=== PATIENT | male | born 1990 | race Caucasian/White ===

== ENCOUNTER → 2017-02-15 22:50 | Emergency (ER) | payer OTHER ==
--- NOTE | ~2017-02-15 | EKG ---
PATIENT: ABRAHAM MCNAMARA UNIT #: [id number] Ventricular Rate: 106 BPM Atrial Rate: 106 BPM P-R Interval: 154 ms QRS Duration: 88 ms Q-T Interval: 334 ms QTC Calculation(Bezet): 443 ms P Union: 18 degrees Calculated R Union: 33 degrees Calculated T Union: 24 degrees Diagnosis Line: Sinus tachycardia Diagnosis Line: Otherwise normal ECG Diagnosis Line: When compared with ECG of 09-MAY-2016 16:39, Diagnosis Line: No significant change was found Diagnosis Line: Confirmed by SERAFIN LINDSEY MD ([id number]) on 02/18/2017 Diagnosis Line: 7:26:01 AM INTERPRETING MD: ROSALIA LUGO
--- NOTE | ~2017-02-15 | CR72 ---
[facility] A Service of [facility] RADIOLOGY TEXT RESULTS PATIENT: ABRAHAM MCNAMARA JR LOCATION: [facility] : [birth year] UNIT #: [id number] AGE: [address]: BIA ER DOCTOR SEX: M ORDER DR: [id number] [place], [place] [address] [id number] E MR#: [id number] Acc #: [id number] NAME: ABRAHAM MCNAMARA JR : 1990 SEX: M STUDY DATE/TIME: 02/15/2017 21:43 UNIT: ASHLEY ROOM: STUDY DESCRIPTION: CR Chest Single View Portable Attending Physician: Ed Doc Paloma Loera Ordering Physician: Ramiro Mcdaniels M.D. Primary Care Physician: Ramandeep Meyer A.P.R.N. MEDICAL IMAGING REPORT This report is preliminary unless electronic signature is present EXAM Portable chest. DATE OF EXAM 02/15/2017 INDICATIONS Mid chest pain today. PROCEDURE Frontal view chest. COMPARISON 05/09/2016 FINDINGS Heart size is normal. Lungs are clear. No pleural fluid. No pneumothorax. IMPRESSION No active process. Dictated by... Baldo Saunders M.D. THIS IS AN ELECTRONICALLY VERIFIED REPORT Baldo Saunders M.D. at 02/18/2017 7:23 AM ALBINA/ashley TD: 02/16/2017 20:51 JOB #: [id number] [facility] A Service of [facility] RADIOLOGY TEXT RESULTS PATIENT: ABRAHAM MCNAMARA JR LOCATION: [facility] : [birth year] UNIT #: [id number] AGE: [address]: RODRIGUEZ LOERA DOCTOR SEX: M ORDER DR: MEDICAL IMAGING REPORT COPY
[2017-02-15 22:50] LABS: BASOPHIL% 0.3 % (0-2.5); DIFF IND NO; EOSINOPHIL# 0.1 X10e3 (0-0.7); EOSINOPHIL% 0.8 % (0.0-7.0); HEMOGLOBIN 15.9 gm/dL (13.0-16.0); LYMPHOCYTE% 16.2 % (17.0-45.0); MEAN CELL VOLUME 84.1 FL (83-96); MEAN CORPUSCULAR HEMOGLOBIN 27.9 PG (28-34); MEAN CORPUSCULAR HGB CONC 33.2 g/dL (30-36); MEAN PLATELET VOLUME 10.7 FL (6.5-11.5); MONOCYTE% 7.7 % (3.0-12.0); NEUTROPHIL# 9.3 X10e3 (1.5-7.1); PLATELET COUNT 222 X10e3 (140-420); RED BLOOD COUNT 5.71 X10e (3.90-5.60); WHITE BLOOD COUNT 12.4 X10e3 (4.0-10.5)
[~2017-02-15 22:50] MED LIST: ALBUTEROL17 GM INH; ASMANEX0.24 G3 IH; AUGMENTIN875 MG PO; BENADRYL25 M3 PO; KEFLEX500 M1 PO; PERCOCET 71 UDTAB 71 PO
[2017-02-15 23:04] LABS: PARTIAL THROMBOPLASTIN TIME 24.9 SECONDS (23.5-31.3); PROTHROMBIN TIME (PATIENT) 10.5 SECONDS (9.6-11.5)
[2017-02-15 23:25] LABS: ALBUMIN SERUM 4.2 g/dL (3.5-5.0); ALKALINE PHOSPHATASE 90 U/L (32-92); ALT (SGPT) 36 U/L (10-40); AST (SGOT) 22 U/L (10-42); BILIRUBIN, DIRECT 0.1 mg/dL (0.0-0.2); BILIRUBIN,INDIRECT 0.6 mg/dL (0.0-0.9); BILIRUBIN,TOTAL 0.7 mg/dL (0.2-2.0); BLOOD UREA NITROGEN 20 mg/dL (9-23); BUN/CREATININE RATIO 18.18; CALCIUM SERUM 9.1 mg/dL (8.4-10.2); CARBON DIOXIDE 26 mmol/L (22-31); CHLORIDE 101 mmol/L (100-111); CREATININE SERUM 1.1 mg/dL (0.6-1.4); GLOM FILT RATE Estimated ABOVE60 mL/min (>60); GLUCOSE FASTING 110 mg/dL (70-110); POTASSIUM 3.6 mmol/L (3.5-5.1); PROTEIN TOTAL SERUM 7.7 g/dL (6.0-8.3); SODIUM 135 mmol/L (135-145)
== END | disposition left against medical advice (07) ==
LOC: CED 22:50
PROVIDERS: Emergency Medicine
DX: Z53.21 Procedure and treatment not carried out due to patient leaving prior to being seen by health care provider (principal)
CPT/HCPCS: 71010; 80048; 80076; 85025; 85610; 85730; 93005